=== PATIENT | female | born 1960 | race Caucasian/White ===

== ENCOUNTER 2018-12-21 17:37 | Emergency (ER) | payer OTHER ==
--- NOTE | 2018-12-21 17:48 | PDOC ---
Rapid Medical Evaluation Time Seen by Provider: 12/21/18 17:42 Medical Evaluation: Allergies Allergy/AdvReac Type Severity Reaction Status Date / Time No Known Allergies Allergy Verified 12/21/18 17:42 12/21/18 17:43 I have performed a brief in-person evaluation of this patient. The patient presents with a chief complaint of: R lower back pain radiating to R thigh, worse w/ standing. No trauma or other inciting factors. No snesory changes, incontinence or saddle anes. Denies back pain in past but has had pain in "hips" per pt. No dysuria, hematuria, vaginal discharge, change in BM, n/v/f/ c. Pertinent physical exam findings:appears uncomfortable, siting in W/C at triage and now c/o mostly R thigh pain I have ordered the following:nothing The patient will proceed to the ED for further evaluation. Discharge Disposition - Diagnosis Back pain Qualifiers: Back pain location: low back pain Chronicity: acute Back pain laterality: right Sciatica presence: without sciatica Qualified Code(s): M54.5 - Low back pain - Referrals - Patient Instructions - Post Discharge Activity
[2018-12-21 18:24] VITALS: TEMP 98.1; BMI 30.7
[2018-12-21] MEDS ORDERED: LIDOCAINE 5% TOPICAL PATCH TP ONE (18:30)
[2018-12-21] MEDS ORDERED: KETOROLAC TROMETHAMINE 30 MG/1 ML VIAL IM ONE (18:36)
[2018-12-21] MEDS ORDERED: KETOROLAC TROMETHAMINE 30 MG/1 ML VIAL ONE (18:38)
[2018-12-21] MEDS ORDERED: LIDOCAINE 5% TOPICAL PATCH ONE (18:38)
--- NOTE | 2018-12-21 18:44 | PDOC ---
History of Present Illness - General History Source: Patient Exam Limitations: No Limitations - History of Present Illness Initial Comments: 12/21/18 18:38 58YOF with h/o chronic low back pain from herniated disc diagnosed 5 years ago, fibromyalgia, depression (on duloxetine and paroxetine), HTN (on metoprolol), and HLD (on simvastatin) who p/w acute exacerbation of this lower back pain over the past 5 days. She describes the pain as severe, worse in the right low back (where it usually is for her), and radiating down the back and outer side of the right leg to the knee. It is associated with numbness to the front of the right thigh. She also states she has had mild subjective fever and nausea. She denies any recent falls or physical trauma. She denies additional numbness. She also denies tingling, focal weakness, bowel or bladder incontinence, urinary retention, headache, neck pain, SOB, chest pain, vomiting, diarrhea, constipation, or other symptoms. <Sasha Anaya - Last Filed: 12/21/18 23:06> <Jessica Herrera - Last Filed: 12/22/18 00:38> - General Chief Complaint: Pain, Acute Stated Complaint: pain Time Seen by Provider: 12/21/18 17:42 Past History - Past Medical History COPD: No - Suicide/Smoking/Psychosocial Hx Smoking History: Former smoker Have you smoked in the past 12 months: No Information on smoking cessation initiated: No Hx Alcohol Use: No Drug/Substance Use Hx: No <Sasha Anaya - Last Filed: 12/21/18 23:06> <Jessica Herrera - Last Filed: 12/22/18 00:38> - Past Medical History Allergies/Adverse Reactions: Allergies Allergy/AdvReac Type Severity Reaction Status Date / Time No Known Allergies Allergy Verified 12/21/18 17:42 Home Medications: Ambulatory Orders Lidocaine Patch Removal [Lidoderm Patch Removal] 1 each MC PRN PRN #3 each 12/21 Methocarbamol [Robaxin-750] 750 mg PO Q4H PRN #20 tablet 12/21/18 Metoprolol Succinate [Toprol Xl -] mg PO DAILY 12/21/18 Review of Systems - Review of Systems Able to Perform ROS?: Yes Comments:: 12/21/18 18:45 GEN: subjective fever, no chills, malaise, generalized weakness, or weight change HEENT: no ear pain, sore throat, vision change, or eye pain CV: no chest pain, palpitations, lightheadedness, syncope, or edema RESP: no cough, wheezing, or SOB GI: nausea, no abdominal pain, vomiting, diarrhea, constipation, or white/black/ bloody stool : no dysuria, hematuria, incontinence, retention, bleeding, or discharge MSK: right low back pain, right thigh pain, no neck pain or joint swelling/pain NEURO: no headache, seizure, vertigo, numbness, tingling, or focal weakness PSYCH: no substance use, no behavior change SKIN: no jaundice, no rash ROS otherwise negative except as noted in HPI <Sasha Anaya - Last Filed: 12/21/18 23:06> *Physical Exam - Vital Signs Last Vital Signs Temp Pulse Resp BP Pulse Ox 98.1 F 58 L 20 160/100 99 12/21/18 17:44 12/21/18 17:44 12/21/18 17:44 12/21/18 17:44 12/21/18 17:44 - Physical Exam Comments: 12/21/18 18:46 GENERAL: uncomfortable-appearing, A/Ox4, mild distress, answers questions appropriately, Liberian speaking, accompanied by scrap wheeler HEENT: PERRLA, EOMI, moist mucous membranes NECK: no midline ttp, no spinal stepoff or deformity, no hematoma, full ROM, neck supple BACK: no T-spine or superior L-spine ttp, there is ttp at L4-S1 right paraspinous region without stepoff or deformity CARDIOVASCULAR: regular rate/rhythm, normal S1S2, no MGR, strong peripheral pulses, capillary refill <2 seconds, extremities wwp, no edema LUNGS/RESPIRATORY: no respiratory distress, CTAB GI/ABDOMEN: symmetric [id number], normoactive BS, soft, no ttp, no midline pulsatile masses : no CVA tenderness EXTREMITIES: no muscle atrophy, no acute deformity SKIN: warm and dry, no pallor, no jaundice, no rash, no bruising, no skin breakdown, no cuts, no lesions NEUROLOGICAL: GCS 15, CN II-XII grossly intact, 5/5 strength proximally and distally, no facial droop <Sasha Anaya - Last Filed: 12/21/18 23:06> - Vital Signs Last Vital Signs Temp Pulse Resp BP Pulse Ox 98.1 F 58 L 20 160/100 99 12/21/18 17:44 12/21/18 17:44 12/21/18 17:44 12/21/18 17:44 12/21/18 17:44 <Jessica Herrera - Last Filed: 12/22/18 00:38> ED Treatment Course - LABORATORY CBC & Chemistry Diagram: 12/21/18 21:40 12/21/18 21:40 <Sasha Anaya - Last Filed: 12/21/18 23:06> - LABORATORY CBC & Chemistry Diagram: 12/21/18 21:40 12/21/18 21:40 - ADDITIONAL ORDERS Additional order review: Laboratory Results 12/21/18 12/21/18 21:40 21:40 Sodium 139 Potassium 3.9 Chloride 105 Carbon Dioxide 26 Anion Gap 8 BUN 13.1 Creatinine 1.1 Est GFR (CKD-EPI)AfAm 63.20 Est GFR (CKD-EPI)NonAf 54.53 Random Glucose 126 H Calcium 9.6 Total Bilirubin 1.2 H AST 28 ALT 53 Alkaline Phosphatase 89 C-Reactive Protein < 0.3 Total Protein 7.5 Albumin 4.4 Urine Color Yellow Urine Appearance Clear Urine pH 5.5 Ur Specific [place] 1.012 Urine Protein 1+ H Urine Glucose (UA) Negative Urine Ketones Negative Urine Blood 2+ H Urine Nitrite Negative Urine Bilirubin Negative Urine Urobilinogen 1.0 Ur Leukocyte Esterase Negative Urine WBC (Auto) 2 Urine RBC (Auto) 6 Urine Casts (Auto) 0 U Epithel Cells (Auto) 1.9 Urine Bacteria (Auto) 28.4 12/21/18 21:40 RBC 4.68 MCV 88.9 MCHC 34.1 RDW 13.7 MPV 9.0 Neutrophils % 78.8 Lymphocytes % 15.1 Monocytes % 5.7 Eosinophils % 0.2 Basophils % 0.2 - RADIOLOGY Radiology Studies Ordered: Category Date Time Status FEMUR-RIGHT [RAD] Stat Radiology 12/21/18 21:01 Taken - Medications Given in the ED: ED Medications Discontinued Medications Generic Name Dose Route Start Last Admin Trade Name Freq PRN Reason Stop Dose Admin Ketorolac Tromethamine 30 mg 12/21/18 18:36 12/21/18 18:43 Toradol Injection - IM 12/21/18 18:37 30 mg ONCE ONE Administration Lidocaine 1 patch 12/21/18 18:30 12/21/18 18:43 Lidoderm Patch - TP 12/21/18 18:31 1 patch ONCE ONE Administration Methocarbamol 1,000 mg 12/21/18 19:19 12/21/18 20:20 Robaxin - PO 12/21/18 19:20 1,000 mg ONCE ONE Administration Morphine Sulfate 2 mg 12/21/18 20:58 12/21/18 21:50 Morphine Injection - IVPUSH 12/21/18 20:59 2 mg ONCE ONE Administration <Jessica Herrera - Last Filed: 12/22/18 00:38> Medical Decision Making - Medical Decision Making 12/21/18 18:48 58YOF with h/o with chronic back pain p/w acute exacerbation of same chronic back pain. No new red flag symptoms (see HPI). Initial Vital Signs Temp Pulse Resp BP Pulse Ox 98.1 F 58 L 20 160/100 99 12/21/18 17:44 12/21/18 17:44 12/21/18 17:44 12/21/18 17:44 12/21/18 17:44 Exam: As noted in Physical Exam section. DDX IBNLT: DDD, DJD, osteophyte, compression fxr, other vertebral or spinous process fxr; much less likely malignancy (i.e. multiple myeloma), spinal epidural abscess, epidural hematoma, meningitis, or other more concerning etiology. W/U ordered: UA, UCx, CTLS TX ordered: Lidocaine patch, Toradol, Robaxin Laboratory Tests 12/21/18 12/21/18 12/21/18 21:40 21:40 21:40 WBC 5.4 RBC 4.68 Hgb 14.2 Hct 41.6 MCV 88.9 MCH 30.3 MCHC 34.1 RDW 13.7 Plt Count 158 MPV 9.0 Absolute Neuts (auto) 4.3 Neutrophils % 78.8 Lymphocytes % 15.1 Monocytes % 5.7 Eosinophils % 0.2 Basophils % 0.2 Nucleated RBC % 0 Sodium 139 Potassium 3.9 Chloride 105 Carbon Dioxide 26 Anion Gap 8 BUN 13.1 Creatinine 1.1 Est GFR (CKD-EPI)AfAm 63.20 Est GFR (CKD-EPI)NonAf 54.53 Random Glucose 126 H Calcium 9.6 Total Bilirubin 1.2 H AST 28 ALT 53 Alkaline Phosphatase 89 C-Reactive Protein < 0.3 Total Protein 7.5 Albumin 4.4 Urine Color Yellow Urine Appearance Clear Urine pH 5.5 Ur Specific [place] 1.012 Urine Protein 1+ H Urine Glucose (UA) Negative Urine Ketones Negative Urine Blood 2+ H Urine Nitrite Negative Urine Bilirubin Negative Urine Urobilinogen 1.0 Ur Leukocyte Esterase Negative Urine WBC (Auto) 2 Urine RBC (Auto) 6 Urine Casts (Auto) 0 U Epithel Cells (Auto) 1.9 Urine Bacteria (Auto) 28.4 Reassessment: Patient appears and states she feels much better. Awaiting CTLS and will decide dispo based on results. The Pt has gotten significant relief of symptoms while in the ED. They are appropriate for discharge with close outpatient follow up. The Pt is comfortable with this plan and will follow up with their primary care provider in 1-3 days. They are counseled on importance of proactive pain management and neurosurgery follow up. Rx sent for lidocaine patches and Robaxin to the patient's pharmacy. Specific return precautions are discussed and they will come back to the ER if necessary. <Sasha Anaya - Last Filed: 12/21/18 23:06> *DC/Admit/Observation/Transfer - Discharge Dispostion Decision to Admit order: No <Anyaa,Sasha - Last Filed: 12/21/18 23:06> - Discharge Dispostion Decision to Admit order: No <HerreraAna brunerJessica - Last Filed: 12/22/18 00:38> Diagnosis at time of Disposition: Back pain Qualifiers: Back pain location: low back pain Chronicity: acute Back pain laterality: right Sciatica presence: with sciatica Sciatica laterality: sciatica of right side Qualified Code(s): M54.41 - Lumbago with sciatica, right side - Discharge Dispostion Disposition: HOME Condition at time of disposition: Stable - Prescriptions Prescriptions: Lidocaine Patch Removal [Lidoderm Patch Removal] 1 each MC PRN PRN #3 each PRN Reason: Back Pain Methocarbamol [Robaxin-750] 750 mg PO Q4H PRN #20 tablet PRN Reason: Back Pain - Referrals Referrals: Juan Ng [Primary Care Provider] - - Patient Instructions Printed Discharge Instructions: DI for Low Back Pain Additional Instructions: You were seen in the ER for lower back pain. We gave you an injection of toradol , a lidocaine patch, and some Robaxin muscle relaxer which helped with your pain. You needed a small dose of morphine here in the ER. We did laboratory work on your blood and urine, and we did x-rays and a CT scan to make sure there were no emergency problems. There were no concerning findings on any of the tests. We sent prescriptions for the lidocaine patches and Robaxin muscle relaxer to your pharmacy, so please pick them up and use them as directed. Please also use Tylenol 650 to 1000 mg, once every 6 hours as needed for pain. Please also use ibuprofen 600 to 800 mg, once every 6 hours for pain. Do light stretching exercises. Do not lay down in bed all day because that will make it worse. We are giving you referral information for one of our neurosurgeons; please follow up with them. Please also follow up with your primary care provider in 1- 3 days, and discuss changing your pain management regimen so that you can control your back pain. Call their clinic as soon as possible, tell them you were seen in the ER for back pain, and tell them you need an appointment. If you have any new or worsening symptoms please come back to the ER at any time ( 24 hours a day), especially for fever, new numbness, new tingling new weakness, new urinary or bowel incontinence or retention, or other new symptoms. If you are having severe or life threatening symptoms, or symptoms that make it unsafe to drive or have someone drive you, please call 911. - Post Discharge Activity
[2018-12-21] MEDS ORDERED: METHOCARBAMOL 500 MG TABLET PO ONE (19:19)
[2018-12-21] MEDS ORDERED: METHOCARBAMOL 500 MG TABLET ONE (20:30)
[2018-12-21] MEDS ORDERED: morphine CARPU-JECT 2 MG/1 ML DISP.SYRIN IVPUSH ONE (20:58)
[2018-12-21] MEDS ORDERED: MORPHINE SULFATE 2 MG/ML VIAL ONE (21:31)
[2018-12-21] MEDS ORDERED: LIDOCAINE PATCH REMOVAL MC SCH (22:00)
--- NOTE | 2018-12-21 22:14 | PDOC ---
Documentation entered by Shemar Soriano SCRIBE, acting as scribe for Jessica Herrera MD. Jessica Herrera MD: This documentation has been prepared by the Bo alvarado Daniel, SCRIBE, under my direction and personally reviewed by me in its entirety. I confirm that the documentation accurately reflects all work, treatment, procedures, and medical decision making performed by me. Attending Attestation - Resident Resident Name: AnayaSasha - ED Attending Attestation I have performed the following: I have examined & evaluated the patient, The case was reviewed & discussed with the resident, I agree w/resident's findings & plan, Exceptions are as noted - HPI HPI: 12/21/18 19:21 The patient is a 58 year old female with a past medical history of chronic low back pain (due to a herniated disc), depression, HTN, HLD, and fibromyalgia here today for evaluation of right low back pain. The patient reports that she has been experiencing right sided lower back pain that radiates to her right thigh for 5 days that began worsening yesterday and states that she woke up with the pain. She describes her pain as something breaking and family states that she is unable to walk due to the pain. She notes taking tylenol and motrin with mild relief. She also notes associated nausea and subjective fever. Patient denies headache, lightheadedness. Denies fever, chills. Denies chest pain, shortness of breath. Denies vomiting, diarrhea, abdominal pain. Allergies: NKA Social history: Denies tobacco, illicit drug, and alcohol use. Surgical history: appendectomy, total hysterectomy PCP: Juan Ng - Physicial Exam PE: 12/21/18 19:21 GENERAL: Awake, alert, and fully oriented, in no acute distress HEAD: No signs of trauma EYES: PERRLA, EOMI, sclera anicteric, conjunctiva clear ENT: Auricles normal inspection, hearing grossly normal, nares patent, oropharynx clear without exudates. Moist mucosa NECK: Normal ROM, supple, no lymphadenopathy, JVD, or masses LUNGS: Breath sounds equal, clear to auscultation bilaterally. No wheezes, and no crackles HEART: Regular rate and rhythm, normal S1 and S2, no murmurs, rubs or gallops ABDOMEN: Soft, nontender, normoactive bowel sounds. No guarding, no rebound. No masses EXTREMITIES: Normal range of motion, no edema. No clubbing or cyanosis. No cords, erythema, or tenderness. Negative straight leg test bilaterally after medication. DP/PT pulses 2+ bilaterally. Pain in right femur that is intractable. BACK: no midline L spine tenderness to palpation. NEUROLOGICAL: Cranial nerves II through XII grossly intact. Normal speech, normal gait. Reactions at knees and ankles are 2+ bilaterally. SKIN: Warm, Dry, normal turgor, no rashes or lesions noted. - Medical Decision Making 12/21/18 22:24 CBC normal; XR right femur normal. L spine CT pending Chem and UA pending. Pt is doing better after all pain meds, including morphine. 12/22/18 00:44 Patient Name: CATE PRESCOTT THIS IS A PRELIMINARY REPORT FROM [facility] DATE OF SERVICE: 2018-12-21 22:24:41 IMAGES: [id number] EXAM: LUMBAR SPINE CT W/O CONTRAST HISTORY: Right sided sciatic pain. COMPARISON: None. FINDINGS: No fracture subluxation. No suspicious bone lesions. There is a small bulging disc osteophyte complex at the L1-2 level which mildly narrows the central canal and left neural foramen. There is a small bulge at the L4-5 level with mild facet joint arthrosis which mildly narrows the bilateral neural foramina. The central canal and neural foramina are otherwise patent. IMPRESSION: Mild central canal and left neural foraminal narrowing at L1/2 due to a bulging disc osteophyte complex. Mild bilateral neural foraminal narrowing L4-5 due to a disc bulge and facet joint arthrosis 12/23/18 01:14 Pt continues to have neuropathic pain. She is stable for discharge however.
[2018-12-21 22:18] LABS: BASO % 0.2 % (0-2.0); EOS % 0.2 % (0-4.5); HEMATOCRIT 41.6 % (32.4-45.2); HEMOGLOBIN 14.2 GM/dL (10.7-15.3); LYMPH % 15.1 % (8-40); MCH 30.3 pg (25.7-33.7); MCHC 34.1 g/dl (32.0-36.0); MEAN CELL VOLUME 88.9 fl (80-96); MONO % 5.7 % (3.8-10.2); NEUT % 78.8 % (42.8-82.8); PLATELET COUNT 158 K/MM3 (134-434); RBC 4.68 M/mm3 (3.60-5.2); RDW 13.7 % (11.6-15.6); WHITE BLOOD COUNT 5.4 K/mm3 (4.0-10.0)
[2018-12-21 22:23] LABS: EPI CELLS 1.9 /HPF (0-5/HPF); HYALINE CASTS 0 /lpf (0-8); PH,URINE 5.5 (5.0-8.0); URINE APPEARANCE CLEAR; URINE BACTERIA 28.4 /hpf (NEGATIVE); URINE BILIRUBIN NEGATIVE (NEGATIVE); URINE COLOR YELLOW; URINE GLUCOSE (UA) NEGATIVE (NEGATIVE); URINE KETONE NEGATIVE (NEGATIVE); URINE LEUK ESTERASE NEGATIVE (NEGATIVE); URINE NITRITE NEGATIVE (NEGATIVE); URINE PROTEIN 1+ (NEGATIVE); URINE RBC 6 /hpf (0-4); URINE WBC 2 /hpf (0-5)
[2018-12-21 22:41] LABS: ALBUMIN 4.4 g/dl (3.4-5.0); ALK PHOS 89 U/L (45-117); ANION GAP 8 MMOL/L (8-16); BILIRUBIN,TOTAL 1.2 mg/dL (0.2-1); BLOOD UREA NITROGEN 13.1 mg/dL (7-18); CALCIUM 9.6 mg/dL (8.5-10.1); CHLORIDE 105 mmol/L (98-107); CO2 26 mmol/L (21-32); GLUCOSE,RANDOM 126 mg/dL (74-106); POTASSIUM 3.9 mmol/L (3.5-5.1); SGOT/AST 28 U/L (15-37); SGPT/ALT 53 U/L (13-61); SODIUM 139 mmol/L (136-145); TOT PROT 7.5 g/dl (6.4-8.2)
[2018-12-21 22:42] LABS: CREATININE 1.1 mg/dL (0.55-1.3)
[2018-12-22 03:05] VITALS: BP 178/100; PULSE 66
== END 2018-12-22 01:58 | disposition home or self-care (01) ==
LOC: JER 17:37
PROC: 3E033NZ Introduction of Analgesics, Hypnotics, Sedatives into Peripheral Vein, Percutaneous Approach (ICD-10-PCS; principal; 2018-12-21)
DX: M54.41 Lumbago with sciatica, right side (principal); M79.7 Fibromyalgia; I10 Essential (primary) hypertension; E78.00 Pure hypercholesterolemia, unspecified; E78.5 Hyperlipidemia, unspecified; F32.9 Major depressive disorder, single episode, unspecified
CPT/HCPCS: 36415; 72131-TC; 73552-TC-RT-FY; 80053; 81003; 85025; 86140; 87086; 96372; 96374; 99282-25